=== PATIENT | male | born 1970 | race African-American/Black ===

== ENCOUNTER 2017-07-08 12:00 | Emergency (ER) | payer OTHER, SELFPAY ==
[~2017-07-08 12:00] MED LIST: Iopamidol 370 76% 100 ML VIAL ONE
[2017-07-08] MEDS ORDERED: Ondansetron HCl/PF 4 MG/2 ML Vial ONE ×2 (12:08→14:18)
[2017-07-08 12:30] LABS: ALT (SGPT) 9 U/L (8-55); AST (SGOT) 18 U/L (5-34); Albumin 4.8 g/dL (3.5-5.0); Alcohol Less than 10 mg/dL (Less than 10); Alkaline Phosphatase 69 U/L (40-150); Anion Gap 20 mmol/L (10-20); BUN (Urea Nitrogen) 11 mg/dL (8.9-20.6); Bilirubin, Total 0.8 mg/dL (0.2-1.2); Calc. Creatinine Clearance 0 mL/min (70-130); Calcium 9.8 mg/dL (7.8-10.44); Carbon Dioxide 20 mmol/L (22-29); Chloride 106 mmol/L (98-107); Estimated GFR-MDRD Greater than 90; Globulin 3.1 g/dL (2.4-3.5); Glucose 130 mg/dL (70-105); Lipase 16 U/L (8-78); Potassium 3.9 mmol/L (3.5-5.1); Protein, Total 7.9 g/dL (6.0-8.3); Sodium 142 mmol/L (136-145)
[2017-07-08 12:36] LABS: #Basophils 0.1 thou/uL (0.0-0.2); #Eosinphils 0.1 thou/uL (0.0-0.7); #Lymphocytes 2.1 thou/uL (1.20-3.40); #Monocytes 0.7 thou/uL (0.11-0.59); #Neutrophils 13.3 thou/uL (1.40-6.50); %Basophils 0.8 % (0.0-1.0); %Eosinophils 0.6 % (0.0-10.0); %Lymphocytes 12.7 % (21.0-51.0); %Monocytes 4.2 % (0.0-10.0); %Neutrophils 81.7 % (42.0-75.0); Elliptocytes SLIGHT = 2-5 cells (100X) (0-1/hpf); Hypochromia MODERATE=16-30 cells (100X) (0-5/hpf); MDiff Complete? YES; Mean Corpuscular HGB CONC 29.9 g/dL (32.0-36.0); Mean Corpuscular Hemoglobin 20.9 pg (27.0-31.0); Mean Platelet Volume 6.2 fL (7.4-10.4); Microcytosis MARKED = >30 cells (100X) (0-5/hpf); Platelet Count 256 thou/uL (130-400); Red Blood Cell (RBC) Count 6.68 mill/uL (4.70-6.10); Target Cells MODERATE= 6-15 cells (100X) (0-1/hpf); White Blood Cell (WBC) Count 16.3 thou/uL (4.8-10.8)
[2017-07-08] MEDS ORDERED: Fentanyl 100 MCG/2 ML VIAL ONE (12:51)
[2017-07-08 13:37] LABS: Bilirubin Negative (Negative); Blood, Urine Trace (Negative); Clarity Clear (Clear); Glucose, Urine (Dipstick) Negative (Negative); Leukocyte Negative (Negative); Nitrite Negative (Negative); Protein, Urine (Dipstick) 30 mg/dL (Neg-Trace); Specific Gravity, Urine 1.025 (1.005-1.030); Urobilinogen 0.2 mg/dL (0.2-1.0); pH, Urine 5.5 (5.0-9.0)
[2017-07-08 13:42] LABS: Bacteria/HPF 1+ HPF (None Seen); RBC/HPF 0-3 HPF (0-3); Squamous Epithelial 0-3 HPF (0-3); WBC/HPF 0-3 HPF (0-3)
[2017-07-08 13:43] LABS: Amphetamine Not Detected (NotDetected); Barbiturates Screen Not Detected (NotDetected); Benzodiazepine Screen Not Detected (NotDetected); Cocaine Metabolite Screen Not Detected (NotDetected); Methadone Not Detected (NotDetected); Methamphetamine Not Detected (NotDetected); Opiate Screen Not Detected (NotDetected); Oxycodone Screen Not Detected (NotDetected); Phencyclidine (PCP) Not Detected (NotDetected); THC/Cannabinoid Screen Detected (NotDetected); Tricyclic Screen Not Detected (NotDetected)
[2017-07-08 13:44] LABS: Medtox Control Line Valid? VALID (VALID)
--- NOTE | 2017-07-08 21:46 | RAD ---
PORTABLE CHEST 07/08/17 An AP portable film at 1321 shows a normal sized heart and clear lungs. There are no signs of pneumon ia or pleural effusion. The mediastinum appears normal and the trachea is midline. IMPRESSION: No acute thoracic finding. POS: HOME
--- NOTE | 2017-07-08 21:58 | CT ---
CT ABDOMEN AND PELVIS WITH CONTRAST 07/08/[address] of the abdomen and pelvis was performed for evaluation of nausea, vomiting, and abdominal p ain. The patient also has fever. Axial slices were acquired, followed by coronal reconstructions. The lung bases are clear. The liver, spleen, pancreas, gallbladder, adrenal glands, kidneys, and abdo enoch aorta showed no acute findings. There is probably a subcentimeter cyst in the upper pole of the left kidney. The bowel is nondistended. There are no dilated loops to suggest obstruction. The bowel wall is not t hickened. Some of the distal small bowel loops are fluid filled, though not dilated. This is a nonspe cific finding and could be normal or could be a sign of mild enteritis. There are no inflammatory vicenta nges around bowel. CT of the pelvis showed no pelvic masses, fluid, collections, or inflammatory changes. There is some mild concentric bulging of the L4-L5 disc. IMPRESSION: Nonspecific findings of some nondistended loops of distal small bowel with fluid. Enteritis might be a consideration. POS: HOME
== END 2017-07-08 14:32 | disposition home or self-care (01) ==
LOC: BURERS 12:00
DX: K52.9 Noninfective gastroenteritis and colitis, unspecified (principal); F17.210 Nicotine dependence, cigarettes, uncomplicated
CPT/HCPCS: 51701; 71045; 74177; 80053; 80306; 80307; 81003; 81015; 83605; 83690; 85025; 94760; 96361; 96372; 96374; 96375; 96376; A4216; J2405; J3010

== ENCOUNTER 2017-07-08 20:51 | Emergency (ER) | payer SELFPAY ==
[2017-07-08] MEDS ORDERED: Mag-Al Plus 1200 MG/1200 MG/120 MG/30 ML UDCUP ONE (21:38)
[2017-07-08] MEDS ORDERED: Ondansetron HCl/PF 4 MG/2 ML Vial ONE ×2 (21:38→21:52)
[2017-07-08] MEDS ORDERED: Lidocaine Viscous Sol 2% 15 ml UD Cup ONE (21:38)
[2017-07-08] MEDS ORDERED: Pantoprazole 40 MG VIAL ONE (21:38)
[2017-07-08 21:44] LABS: Hemoglobin 13.3 g/dL (14.0-18.0); Mean Corpuscular HGB CONC 30.7 g/dL (32.0-36.0); Mean Corpuscular Hemoglobin 21.3 pg (27.0-31.0); Mean Corpuscular Volume 69.3 fl (80.0-94.0); Mean Platelet Volume 7.3 fL (7.4-10.4); Platelet Count 233 thou/uL (130-400); RBC Distribution Width 13.6 % (11.5-14.5); Red Blood Cell (RBC) Count 6.28 mill/uL (4.70-6.10); White Blood Cell (WBC) Count 16.7 thou/uL (4.8-10.8)
[2017-07-08 21:53] LABS: ALT (SGPT) 13 U/L (8-55); AST (SGOT) 35 U/L (5-34); Albumin 4.8 g/dL (3.5-5.0); Alkaline Phosphatase 63 U/L (40-150); Anion Gap 22 mmol/L (10-20); BUN (Urea Nitrogen) 11 mg/dL (8.9-20.6); Bilirubin, Total 1.1 mg/dL (0.2-1.2); Calc. Creatinine Clearance 0 mL/min (70-130); Calcium 10.1 mg/dL (7.8-10.44); Carbon Dioxide 19 mmol/L (22-29); Chloride 104 mmol/L (98-107); Estimated GFR-MDRD 86; Globulin 3.2 g/dL (2.4-3.5); Glucose 117 mg/dL (70-105); Lipase 7 U/L (8-78); Potassium 4.3 mmol/L (3.5-5.1); Sodium 141 mmol/L (136-145)
[2017-07-08 22:01] LABS: #Basophils 0.1 thou/uL (0.0-0.2); #Lymphocytes 0.6 thou/uL (1.20-3.40); #Monocytes 0.2 thou/uL (0.11-0.59); #Neutrophils 15.8 thou/uL (1.40-6.50); %Basophils 0.6 % (0.0-1.0); %Lymphocytes 3.3 % (21.0-51.0); %Monocytes 1.3 % (0.0-10.0); %Neutrophils 94.8 % (42.0-75.0); Hypochromia SLIGHT = 6-15 cells (100X) (0-5/hpf); MDiff Complete? YES; Microcytosis SLIGHT = 6-15 cells (100X) (0-5/hpf); Ovalocytes SLIGHT = 2-5 cells (100X) (0-1/hpf); PLT Morphology Comment Appears Adequate; Target Cells SLIGHT = 2-5 cells (100X) (0-1/hpf)
--- NOTE | 2017-07-08 22:16 | RAD ---
ACUTE ABDOMEN SERIES 07/08/17 Supine and erect films show no free air beneath the diaphragm. The gas pattern is nonspecific with a few scattered pockets of gas and some air fluid levels but no distended loops of bowel. Contrast is s een in the urinary bladder from the recent CT scan and the contour seems normal. No pathologic calci fications were seen. No free air was noted. The chest film in the series shows a normal sized heart a nd clear lungs. IMPRESSION: Nonspecific abdominal findings. POS: HOME
== END 2017-07-08 23:18 | disposition home or self-care (01) ==
LOC: BURERS 20:51
DX: K29.20 Alcoholic gastritis without bleeding (principal); F17.210 Nicotine dependence, cigarettes, uncomplicated
CPT/HCPCS: 74022; 83690; 94760; 96365; 96375; C9113; J2405